=== PATIENT | female | born 1985 | race Caucasian/White ===

== ENCOUNTER 2016-12-22 13:57 | Outpatient (CLI) | payer MEDICARE ==
[~2016-12-22] VITALS: Ht 170.2 cm; Wt 78.5 kg
[~2016-12-22 13:57] MED LIST: NORCO 5-325 TA1 EACH PO
[2017-05-03] MEDS ORDERED: COLACE 100MG C100 MG PO (17:30)
== END 2016-12-22 15:33 | disposition home or self-care (01) ==
LOC: GENOP 13:57
DX: O36.8120 Decreased fetal movements, second trimester, not applicable or unspecified (principal); Z3A.21 21 weeks gestation of pregnancy
CPT/HCPCS: 81001; 94664; 96372; J2930

== ENCOUNTER 2021-04-25 11:26 | Outpatient (CLI) | payer OTHER ==
[~2021-04-25 11:26] MED LIST changes: +COLACE 100MG C100 MG PO; +FLOMAX 0.4 MG0.4 MG PO; +FLOVENT 220.1 GM/INH INH; +PROAIR DIGIHAL90 MCG INH; +ZITHROMAX250 MG PO; +ZOFRAN 4 MG TAB4 MG PO
[2021-05-03] MEDS ORDERED: IBUPROFEN800 MG PO (05:35)
[2021-05-03] MEDS ORDERED: DOCUSATE SODIU100 MG PO (05:35)
== END 2021-04-25 14:00 | disposition home or self-care (01) ==
LOC: GENOP 11:26
DX: O36.8330 Maternal care for abnormalities of the fetal heart rate or rhythm, third trimester, not applicable or unspecified (principal); Z88.5 Allergy status to narcotic agent; Z88.0 Allergy status to penicillin; Z3A.37 37 weeks gestation of pregnancy
CPT/HCPCS: 59025

== ENCOUNTER 2021-05-01 12:07 | Outpatient (CLI) | payer OTHER ==
[2021-05-03] MEDS ORDERED: DOCUSATE SODIU100 MG PO (05:35)
[2021-05-03] MEDS ORDERED: IBUPROFEN800 MG PO (05:35)
== END 2021-05-01 14:50 | disposition home or self-care (01) ==
LOC: GENOP 12:07
DX: O47.1 False labor at or after 37 completed weeks of gestation (principal); O36.8130 Decreased fetal movements, third trimester, not applicable or unspecified; O99.283 Endocrine, nutritional and metabolic diseases complicating pregnancy, third trimester; E03.9 Hypothyroidism, unspecified; E04.9 Nontoxic goiter, unspecified; Z3A.38 38 weeks gestation of pregnancy; O98.513 Other viral diseases complicating pregnancy, third trimester; U07.1 COVID-19
CPT/HCPCS: 59025; 81001; 83518

== ENCOUNTER 2021-05-03 03:23 | Inpatient (IN) | payer OTHER ==
[~2021-05-03] VITALS: Ht 170.2 cm; Wt 93.9 kg
[2021-05-03 03:52] LABS: HEMOGLOBIN 11.2 gm/dl (12.3-15.3); RED BLOOD COUNT 4.86 M/UL (4.00-5.10); WHITE BLOOD COUNT 9.6 K/UL (4.5-11.0)
[2021-05-03] MEDS ORDERED: DOCUSATE SODIU100 MG PO (05:35)
[2021-05-03] MEDS ORDERED: IBUPROFEN800 MG PO (05:35)
[2021-05-04 08:40] LABS: HEMOGLOBIN 10.3 gm/dl (12.3-15.3)
== END 2021-05-04 16:50 | disposition home or self-care (01) | DRG 805 ==
LOC: GENOP 03:23 → OB 04:03
PROVIDERS: Obstetrics & Gynecology; ADMIT Obstetrics & Gynecology
PROC: 10907ZC Drainage of Amniotic Fluid, Therapeutic from Products of Conception, Via Natural or Artificial Opening (ICD-10-PCS; principal; 2021-05-04)
PROC: 10E0XZZ Delivery of Products of Conception, External Approach (ICD-10-PCS; 2021-05-04)
PROC: 3E0DXGC Introduction of Other Therapeutic Substance into Mouth and Pharynx, External Approach (ICD-10-PCS; 2021-05-04)
DX: O36.8330 Maternal care for abnormalities of the fetal heart rate or rhythm, third trimester, not applicable or unspecified (principal); O45.93 Premature separation of placenta, unspecified, third trimester; Z37.0 Single live birth; U07.1 COVID-19; O98.52 Other viral diseases complicating childbirth; R00.1 Bradycardia, unspecified; E04.9 Nontoxic goiter, unspecified; O99.284 Endocrine, nutritional and metabolic diseases complicating childbirth; E03.9 Hypothyroidism, unspecified; Z3A.38 38 weeks gestation of pregnancy; Z86.16 Personal history of COVID-19
CPT/HCPCS: 36415; 59025; 81001; 82800; 83518; 85014; 85018; 85025

== ENCOUNTER → 2021-07-12 | Outpatient (CLI) | payer OTHER ==
[~2021-07-12] MED LIST changes: +DOCUSATE SODIU100 MG PO; +IBUPROFEN800 MG PO
== END ==
LOC: LAB 10:56
DX: I11.0 Hypertensive heart disease with heart failure (principal); I50.9 Heart failure, unspecified; E78.5 Hyperlipidemia, unspecified; I48.0 Paroxysmal atrial fibrillation; I25.5 Ischemic cardiomyopathy; R07.9 Chest pain, unspecified; R06.02 Shortness of breath; R00.2 Palpitations; R60.0 Localized edema; E07.9 Disorder of thyroid, unspecified
CPT/HCPCS: 36415; 84436; 84443

== ENCOUNTER → 2021-11-10 | Outpatient (CLI) | payer OTHER | LOC: EMI 16:34 | DX: R51.9 Headache, unspecified (principal) | CPT/HCPCS: 70551 ==

== ENCOUNTER → 2022-01-02 | Outpatient (CLI) | payer OTHER | LOC: EXRD 08:29 | DX: E04.2 Nontoxic multinodular goiter (principal) | CPT/HCPCS: 76536 ==